=== PATIENT | female | born 1970 | race Caucasian/White ===

== ENCOUNTER 2019-06-04 09:48 | Outpatient (CLI) | payer BC, SELFPAY ==
--- NOTE | ~2019-06-04 | MM_ITS ---
EXAMINATION: MM screening [facility] BI w john HISTORY: Screening mammogram TECHNIQUE: Craniocaudal and mediolateral oblique 3-D tomosynthesis images were obtained and synthetic 2-D images were generated. CAD analysis was submitted and interpreted. COMPARISON: 05/10/2018, 01/20/2017, 12/30/2015 bilateral digital screening mammogram examinations BREAST PARENCHYMAL COMPOSITION: There are scattered areas of fibroglandular density. FINDINGS: There is no evidence of suspicious mass, calcification, or architectural distortion to sugg est malignancy in either breast. There has been no suspicious interval change. IMPRESSION: 1. No mammographic evidence of malignancy. 2. Recommend routine screening mammography in one year. BI-RADS Category 1: Negative Reviewed, dictated and finalized at location A. TH ASSOCIATE
== END 2019-06-04 09:49 | disposition home or self-care (01) ==
PROVIDERS: Visit Provider Nurse Practitioner
DX: Z12.31 Encounter for screening mammogram for malignant neoplasm of breast (principal)
CPT/HCPCS: 77063; 77067

== ENCOUNTER 2020-02-11 06:55 | Outpatient (NON) | payer BC, SELFPAY ==
[2020-02-12 00:38] LABS: SARS-CoV-2 RNA PCR Negative
== END 2020-02-11 06:56 ==
PROVIDERS: PCP Family Medicine; Visit Provider Physician Assistant
DX: Z20.828 Contact with and (suspected) exposure to other viral communicable diseases (principal); R68.89 Other general symptoms and signs
CPT/HCPCS: 87635; C9803; U0003

== ENCOUNTER 2020-03-09 11:06 | Outpatient (CLI) | payer BC, SELFPAY ==
--- NOTE | ~2020-03-09 | US_ITS ---
EXAMINATION: US thyroid DATE: 03/09/2020 11:36 INDICATION: Goiter. TECHNIQUE: Multiple ultrasound images of the thyroid were obtained. COMPARISON: Ultrasound 11/22/2017 FINDINGS: The right thyroid lobe measures 3.1 x 1.3 x 1.4 cm. The left thyroid lobe measures 3.8 x 1.2 x 1.4 c m. There is normal echotexture and echogenicity throughout the thyroid gland. No discrete nodules id entified. Normal vascular flow is present. IMPRESSION: 1. Normal thyroid. Reviewed, dictated and finalized at location A. R SYSTEMS DESIGNER IMPRESSION: 1. Normal thyroid.
== END 2020-03-09 11:07 | disposition home or self-care (01) ==
PROVIDERS: PCP Family Medicine; Visit Provider Family Medicine
DX: E01.0 Iodine-deficiency related diffuse (endemic) goiter (principal)
CPT/HCPCS: 76536

== ENCOUNTER 2020-06-08 14:41 | Outpatient (CLI) | payer BC, SELFPAY ==
--- NOTE | ~2020-06-08 | MM_ITS ---
EXAMINATION: MM screening [facility] BI w john HISTORY: Screening mammogram TECHNIQUE: Craniocaudal and mediolateral oblique 3-D tomosynthesis images were obtained and synthetic 2-D images were generated. CAD analysis was submitted and interpreted. COMPARISON: 05/27/2019, 05/27/2018, 01/20/2017 BREAST PARENCHYMAL COMPOSITION: There are scattered areas of fibroglandular density. FINDINGS: There is no evidence of suspicious mass, calcification, or architectural distortion to sugg est malignancy in either breast. There has been no suspicious interval change. IMPRESSION: 1. No mammographic evidence of malignancy. 2. Recommend routine screening mammography in one year. BI-RADS Category 1: Negative Reviewed, dictated and finalized at location A. ATING ENGINEER APPRENTICE
== END 2020-06-08 14:42 | disposition home or self-care (01) ==
LOC: ANHIMG 14:43
PROVIDERS: PCP Family Medicine; Visit Provider Nurse Practitioner
DX: Z12.31 Encounter for screening mammogram for malignant neoplasm of breast (principal)
CPT/HCPCS: 77063; 77067

== ENCOUNTER 2021-07-24 07:34 | Outpatient (CLI) | payer BC, SELFPAY ==
--- NOTE | ~2021-07-24 | MM_ITS ---
EXAMINATION: MM screening [facility] BI w john HISTORY: Screening mammogram TECHNIQUE: Craniocaudal and mediolateral oblique 3-D tomosynthesis images were obtained and synthetic 2-D images were generated. CAD analysis was submitted and interpreted. COMPARISON: June 08, 2020, June 04, 2019, May 10, 2018 bilateral screening mammogram examina tions BREAST PARENCHYMAL COMPOSITION: There are scattered areas of fibroglandular density. FINDINGS: There is no evidence of suspicious mass, calcification, or architectural distortion to sugg est malignancy in either breast. There has been no suspicious interval change. IMPRESSION: 1. No mammographic evidence of malignancy. 2. Recommend routine screening mammography in one year. BI-RADS Category 1: Negative Reviewed, dictated and finalized at location A.
== END 2021-07-24 07:35 | disposition home or self-care (01) ==
LOC: ANHIMG 07:35
PROVIDERS: PCP Family Medicine; Visit Provider Obstetrics & Gynecology Gynecology
DX: Z12.31 Encounter for screening mammogram for malignant neoplasm of breast (principal)
CPT/HCPCS: 77063; 77067

== ENCOUNTER → 2021-12-14 13:46 | Outpatient (CLI) | payer BC, SELFPAY ==
--- NOTE | ~2021-12-14 | US_ITS ---
US thyroid INDICATION: Thyroid goiter TECHNIQUE: Real-time sonographic images of the thyroid gland were obtained. COMPARISON: Comparison to 03/09/2020 FINDINGS: The right thyroid lobe measures 3.7 x 1.1 x 1.5 cm. The left thyroid lobe measures 4.1 x 1 x 1.1 cm. There is a benign 2 mm cyst of the right thyroid lobe. There is normal echotexture and ech ogenicity throughout the thyroid gland. No discrete nodules identified. Normal vascular flow is pres ent. IMPRESSION: 1. Unremarkable thyroid ultrasound. Reviewed, dictated and finalized at location A.
== END ==
PROVIDERS: PCP Family Medicine; Visit Provider Physician Assistant
DX: E01.0 Iodine-deficiency related diffuse (endemic) goiter (principal)
CPT/HCPCS: 76536

== ENCOUNTER 2022-04-20 16:07 | Outpatient (CLI) | payer BC, SELFPAY ==
[2022-04-20 17:20] LABS: Hematocrit 37.8 % (37.0-47.0); Hemoglobin 12.5 g/dL (12.0-15.0); Mean Corpuscular HGB Conc 33.1 g/dl (32-36); Mean Corpuscular Hemoglobin 29.8 pg (26-34); Mean Corpuscular Volume 90.2 fl (80-100); Mean Platelet Volume 9.7 fl (7.4-10.4); Platelet Count Result 283 k/mm3 (150-375); Red Blood Count 4.19 M/mm3 (4.2-5.4); Red Cell Distribution Width 12.9 % (11.5-14.5); White Blood Count 7.7 K/mm3 (4.5-10.0)
[2022-04-20 17:51] LABS: Free T4 Free Thyroxine 0.79 ng/mL (0.78-2.19)
[2022-04-20 17:53] LABS: Beta HCG Quantitative < 2.39 mIU/ML
== END 2022-04-20 16:08 | disposition home or self-care (01) ==
LOC: ANHLAB 16:10
PROVIDERS: PCP Family Medicine; Visit Provider Obstetrics & Gynecology Gynecology
DX: N92.1 Excessive and frequent menstruation with irregular cycle (principal)
CPT/HCPCS: 36415; 84439; 84443; 84702; 85027

== ENCOUNTER → 2022-04-22 12:50 | Outpatient (CLI) | payer BC, SELFPAY ==
--- NOTE | ~2022-04-22 | US_ITS ---
EXAMINATION: US pelvic complete w TV DATE: 04/22/2022 13:21 INDICATION: Menorrhagia. TECHNIQUE: Multiple transabdominal and transvaginal sonographic images of the pelvis were obtained. COMPARISON: None. FINDINGS: TRANSABDOMINAL ULTRASOUND: The uterus measures 9.5 x 5.6 x 6.3 cm. There is no free fluid in the pelvis. TRANSVAGINAL ULTRASOUND: The endometrial complex measures 23 mm in thickness. There are nabothian cysts in the cervix. The rig ht ovary measures 2.2 x 1.2 x 1.5 cm. The left ovary measures 3.5 x 2.3 x 2.3 cm. There is a 3.1 cm c yst in left ovary with low level echoes, consistent with a hemorrhagic cyst. There is normal vascular flow in the ovaries. IMPRESSION: 1. Thickened endometrial complex, which may be seen with endometrial hyperplasia or polyp. 2. 3.1 cm hemorrhagic cyst in left ovary. Reviewed, dictated and finalized at location A. LE FUSION MIDDLEWARE DEVELOPER IMPRESSION: 1. Thickened endometrial complex, which may be seen with endometrial hyperplasi a or polyp. 2. 3.1 cm hemorrhagic cyst in left ovary.
== END ==
PROVIDERS: PCP Nurse Practitioner; Visit Provider Nurse Practitioner
DX: N92.1 Excessive and frequent menstruation with irregular cycle (principal); N83.202 Unspecified ovarian cyst, left side
CPT/HCPCS: 76830; 76856

== ENCOUNTER 2022-04-25 13:39 | Outpatient (CLI) | payer BC, SELFPAY ==
[2022-04-25 14:32] LABS: Hematocrit 35.9 % (37.0-47.0); Hemoglobin 11.6 g/dL (12.0-15.0); Mean Corpuscular HGB Conc 32.3 g/dl (32-36); Mean Corpuscular Hemoglobin 29.1 pg (26-34); Mean Corpuscular Volume 90.2 fl (80-100); Mean Platelet Volume 9.3 fl (7.4-10.4); Platelet Count Result 298 k/mm3 (150-375); Red Blood Count 3.98 M/mm3 (4.2-5.4); Red Cell Distribution Width 13.1 % (11.5-14.5); White Blood Count 7.4 K/mm3 (4.5-10.0)
== END 2022-04-25 13:40 | disposition home or self-care (01) ==
PROVIDERS: PCP Nurse Practitioner; Visit Provider Obstetrics & Gynecology Gynecology
DX: N92.0 Excessive and frequent menstruation with regular cycle (principal)
CPT/HCPCS: 36415; 85027

== ENCOUNTER 2022-12-22 13:00 | Outpatient (RCR) | payer BC, SELFPAY ==
--- NOTE | 2022-12-16 09:43 | OPREHPOC ---
Outpatient Therapy Plan of Care This is a Multidisciplinary Plan of Care that may contain components documented by all disciplines (PT, OT, and ST.) PT Problem 1 PT Problem #1 Knowledge Deficit PT Goal 1 Goal 1. Patient will perform independent HEP Target Visit 6 PT Problem 2 PT Problem #2 Impaired Strength PT Goal 1 Goal 1. Improve pelvic floor strength to 4/5 to decrease incontinence Target Visit 6 PT Goal 2 Goal 2. Improve pelvic floor endurance to 10 seconds to decrease incontinence Target Visit 6 PT Problem 3 PT Problem #3 Impaired Functional ADLs PT Goal 1 Goal 1. Decrease pad use to 1 a day or less Target Visit 6 PT Goal 2 Goal 2. Pt will report no more than 1 instance of incontinence a week Target Visit 6
--- NOTE | 2022-12-16 09:43 | PTOPEVAL1 ---
Assessment and note entered by Marissa Wilks DPT Evaluation Information Assessment Status Evaluation Subjective Information Pt reports urinary incontinence for at least 8 years and is worsening. Occurs with sneezing, coughing, and often now just randomly. Occurs daily, 4 times a day but can be hard to tell. Wears 2 smaller liners a day. Denies pain with urination. Urinates 5 times a day and 1 time at night. Can hold urine 10-15 minutes. BM 1-3 times a day, denies pain. No fecal incontinence. History of mild pain with pap smear, intercourse, tampon use. Pt has been 2 times, 1 vaginal and 1 . No other complications. Pt has been told she is perimenopausal. No other COATING OPERATOR or b /b history. Diagnosed with fibromyalgia. Patient goal: decrease incontinence or at least prevent it from worsening Reported Pain Level Pain Score 0: Self Report Assessment PT Clinical Summary The patient is presenting to skilled therapy with a long history of worsening urinary incontinence. She presents with decreased pelvic floor muscle strength and endurance which are contributing to her daily incontinence. She will highly benefit from therapy to address these impairments and reduce incontinence. Plan of Care Interventions Manual Therapy,Neuro Re-education,Patient/ Caregiver Education,Therapeutic Activities, Therapeutic Exercise PT Services Indicated Yes Treatment Frequency and 1 time a week for 5 weeks Duration These treatments will address the objective and functional deficits as defined above. The patient will be advanced safely and appropriately in order for the patient to progress towards his/her prior level of function. Additional exercises will be introduced and as well as a comprehensive home exercise program upon discharge, if needed, ?to ensure carryover of functional gains achieved in the clinic. This treatment plan has been reviewed and agreement upon by the patient.
--- NOTE | 2022-12-28 12:43 | PTOPDC ---
Assessment and note entered by Marissa Wilks, DPT Evaluation Information Assessment Status Discharge - Pt Not Present Subjective Information Assessment PT Clinical Summary Patient is self discharging at this time- her hips and shoulders are bothering her too much and wants to try HEP independently. She has been educated to follow up with PT as needed and will need a new script to resume therapy in the future. Plan of Care PT Services Indicated No
== END 2022-12-29 13:09 | disposition home or self-care (01) ==
LOC: ANHPT 13:00
PROVIDERS: PCP Family Medicine; Visit Provider Family Medicine
DX: R32 Unspecified urinary incontinence (principal)
CPT/HCPCS: 97112; 97161; 97530

== ENCOUNTER 2023-01-19 16:32 | Outpatient (CLI) | payer BC, SELFPAY ==
--- NOTE | ~2023-01-19 | MM_ITS ---
EXAMINATION: MM screening [facility] BI w john HISTORY: Screening mammogram TECHNIQUE: Craniocaudal and mediolateral oblique 3-D tomosynthesis images were obtained and synthetic 2-D images were generated. CAD analysis was submitted and interpreted. COMPARISON: 07/24/2021, 06/08/2020, 06/04/2019 bilateral screening mammogram examinations BREAST PARENCHYMAL COMPOSITION: There are scattered areas of fibroglandular density. FINDINGS: Stable mild fibroglandular asymmetry since 06/04/2019. There is no evidence of suspicious ma ss, calcification, or architectural distortion to suggest malignancy in either breast. There has been no suspicious interval change. IMPRESSION: 1. No mammographic evidence of malignancy. 2. Recommend routine screening mammography in one year. BI-RADS Category 1: Negative Reviewed, dictated and finalized at location A.
== END 2023-01-19 16:33 | disposition home or self-care (01) ==
PROVIDERS: PCP Family Medicine; Visit Provider Nurse Practitioner
DX: Z12.31 Encounter for screening mammogram for malignant neoplasm of breast (principal)
CPT/HCPCS: 77063; 77067

== ENCOUNTER 2023-06-12 00:42 | Day surgery (SDC) | payer BC, SELFPAY ==
[2023-05-16 10:48] VITALS: BMI 34.8
--- NOTE | 2023-06-09 09:07 | SUR.PREOP ---
Patient called regarding upcoming procedure. Reviewed preop instructions, appointment times, and procedure prep.
[2023-06-12 07:49] VITALS: BP 144/59; PULSE 114; RESP 18; TEMP 35.8; O2SAT 98; BMI 34.6
[2023-06-12] MEDS: LACTATED RINGERS 1,000 ML 150 ML IV CONT (07:57)
--- NOTE | 2023-06-12 08:07 | PM.HPGS ---
History of Present Illness History of Present Illness Consent: Risks, benefits, and alternatives have been discussed and questions answered. Patient agrees to proceed with procedure. Chief complaint: neoplasm screening Narrative: Nacny Fischer is a 52 year old female here for first screening colonoscopy Review of Systems Constitutional: Constitutional: Denies headache(s) and Denies weakness Eyes: Eyes: Denies blurry vision ENT: Reports Normal hearing present, Denies headache(s) and Denies neck pain Cardiovascular: Cardiovascular: Denies chest pain and Denies dyspnea Respiratory: Respiratory: Denies dyspnea Gastrointestinal: Gastrointestinal: Reports no additional gastrointestinal complaints Genitourinary: Genitourinary: Denies dysuria Musculoskeletal: Musculoskeletal: Denies neck pain Integumentary/Breasts: Skin/Breast: Denies dry skin Neurologic: Reports Normal hearing present, Denies headache(s) and Denies weakness Psychiatric: Psychiatric: Denies anxiety Endocrine: Endocrine: Denies change in body appearance Hematologic/Lymphatic: Hematologic/Lymphatic: Denies easy bleeding Allergic/Immunologic: Allergic/Immunologic: Denies urticaria PMFSH Past Medical History Medical History (Updated 06/12/23 @ 08:08 by Román Edwards MD) Anxiety Arthritis Asthma Claustrophobia Colon cancer screening Coughing Depression Diarrhea Essential hypertension Excessive hunger Excessive thirst Fibromyalgia Hair loss Hoarseness HTN (hypertension) Insomnia Lightheadedness Migraine, unspecified, not intractable, without status migrainosus Mild episode of recurrent major depressive disorder Mild intermittent asthma without complication Nausea & vomiting Obesity (BMI 30.0-34.9) BUFFY (obstructive sleep apnea) Psoriasis Psoriatic arthritis Seasonal allergies Sleep apnea Thyroid nodule Wears glasses Surgical History Surgical History History of bilateral tubal ligation History of mandibular surgery History of tonsillectomy Family History Family History Other Arthritis Cerebrovascular accident Diabetes mellitus Family history of chronic obstructive pulmonary disease Family history of gout Family history of lung cancer Family history of migraine headaches Family history of thyroid disease HLD (hyperlipidemia) Heart disease Hypertension Social History Social History (Updated 07/11/22 @ 15:56 by Shereen Dela Cruz CMA) Smoking status: Never smoker Second hand tobacco smoke exposure: No Alcohol intake: never Substance use: never Substance use type: does not use Lack of Transportation: No Lack of Food: Never True Current Housing: I Have Housing Concerned About Future Housing: No Difficulty Paying Gas/Electric Bills: No Difficulty Paying for Meds: No Currently Unemployed: No Difficulty w/ Childcare or Family Care: No Living arrangements: with family Occupation/Education: unemployed Additional occupation/education comments: Homemaker Gender identity (if verbalized by the patient): Female Spiritual care concerns: No Agree to blood products: Yes Meds Home Medications and Allergies Home Medications Medication Instructions Recorded Confirmed Type buspirone 15 mg tablet 15 mg PO BID PRN anxiety #60 tabs 11/13/20 06/12/23 Rx omeprazole 40 mg capsule,delayed 40 mg PO DAILY #90 caps 11/13/20 06/12/23 Rx release duloxetine 30 mg capsule,delayed 90 mg PO DAILY #270 caps 01/15/23 06/12/23 Rx release metoprolol succinate 25 mg See Rx Instructions .Route 01/15/23 06/12/23 Rx tablet,extended release 24 hr .COMPLEX #90 tabs gabapentin 300 mg capsule 600 mg PO HS 05/16/23 06/12/23 History progesterone micronized 100 mg 100 mg PO DAILY 05/16/23 06/12/23 History capsule ropinirole 0.25 mg tablet 0.5 mg PO QHS 05/16/23 06/12/23
--- NOTE | 2023-06-12 08:09 | WPDANESEPPF ---
Anes - Initial Pre Proc Eval Procedure: Operation Date: 06/12/23 09:00 Proposed Procedures p Screening Colonoscopy - Román Edwards MD Date/Time: 06/12/23 08:09 Surgeon: Román Edwards MD Pre Op Diagnosis: neoplasm screening Patient Data Age: 52 Gender: F Height: 1.65 m Weight: 94.4 kg Last Vital Signs Temp 96.4 F L 06/12/23 07:49 Pulse 114 H 06/12/23 07:49 Resp 18 06/12/23 07:49 BP 144/59 H 06/12/23 07:49 Pulse Ox 98 06/12/23 07:49 O2 Del Method Room Air 06/12/23 07:49 Allergies Allergy/AdvReac Type Severity Reaction Status Date / Time iodine Allergy Unknown Unknown Verified 06/12/23 07:48 Dust Allergy Mild Unknown Uncoded 06/12/23 07:48 Mold (Blue) Cheese Allergy Mild MUSCUS Uncoded 06/12/23 07:48 BEE POLLENS Allergy Unknown Unknown Uncoded 06/12/23 07:48 Home Medications Medication Instructions Recorded Confirmed Type buspirone 15 mg tablet 15 mg PO BID PRN anxiety #60 tabs 11/13/20 06/12/23 Rx omeprazole 40 mg capsule,delayed 40 mg PO DAILY #90 caps 11/13/20 06/12/23 Rx release duloxetine 30 mg capsule,delayed 90 mg PO DAILY #270 caps 01/15/23 06/12/23 Rx release metoprolol succinate 25 mg See Rx Instructions .Route 01/15/23 06/12/23 Rx tablet,extended release 24 hr .COMPLEX #90 tabs gabapentin 300 mg capsule 600 mg PO HS 05/16/23 06/12/23 History progesterone micronized 100 mg 100 mg PO DAILY 05/16/23 06/12/23 History capsule ropinirole 0.25 mg tablet 0.5 mg PO QHS 05/16/23 06/12/23 History Patient hx anesthesia problems: none Family hx anesthesia problems: none Results Review: All pre-operative results and documents have been reviewed as part of the pre-operative evaluation. [facility] Past Medical History Medical History (Updated 06/12/23 @ 08:08 by Román Edwards MD) Anxiety Arthritis Asthma Claustrophobia Colon cancer screening Coughing Depression Diarrhea Essential hypertension Excessive hunger Excessive thirst Fibromyalgia Hair loss Hoarseness HTN (hypertension) Insomnia Lightheadedness Migraine, unspecified, not intractable, without status migrainosus Mild episode of recurrent major depressive disorder Mild intermittent asthma without complication Nausea & vomiting Obesity (BMI 30.0-34.9) BUFFY (obstructive sleep apnea) Psoriasis Psoriatic arthritis Seasonal allergies Sleep apnea Thyroid nodule Wears glasses Surgical History Surgical History History of bilateral tubal ligation History of mandibular surgery History of tonsillectomy Family History Family History Other Arthritis Cerebrovascular accident Diabetes mellitus Family history of chronic obstructive pulmonary disease Family history of gout Family history of lung cancer Family history of migraine headaches Family history of thyroid disease HLD (hyperlipidemia) Heart disease Hypertension Social History Social History (Updated 07/11/22 @ 15:56 by Shereen Dela Cruz [facility]) Smoking status: Never smoker Second hand tobacco smoke exposure: No Alcohol intake: never Substance use: never Substance use type: does not use Lack of Transportation: No Lack of Food: Never True Current Housing: I Have Housing Concerned About Future Housing: No Difficulty Paying Gas/Electric Bills: No Difficulty Paying for Meds: No Currently Unemployed: No Difficulty w/ Childcare or Family Care: No Living arrangements: with family Occupation/Education: unemployed Additional occupation/education comments: Homemaker Gender identity (if verbalized by the patient): Female Spiritual care concerns: No Agree to blood products: Yes Anes - Eval Final PreProcedure Day of Procedure 06/12/23 08:09 Patient weight: obese Heart: regular rate and rhythm Lungs: clear to auscultation Airway: Mallampati scale
[2023-06-12 08:24] VITALS: BP 88/65; PULSE 103; RESP 25; O2SAT 99
[2023-06-12 08:34] VITALS: BP 126/76; PULSE 102; RESP 17; O2SAT 100
[2023-06-12 08:44] VITALS: BP 130/77; PULSE 100; RESP 16; O2SAT 100
== END 2023-06-12 08:57 | disposition home or self-care (01) ==
PROVIDERS: PCP Family Medicine; Referring Provider Nurse Practitioner; Visit Provider Internal Medicine Gastroenterology
PROC: 0DJD8ZZ Inspection of Lower Intestinal Tract, Via Natural or Artificial Opening Endoscopic (ICD-10-PCS; CPT 45378; principal; 2023-06-12 09:00)
DX: Z12.11 Encounter for screening for malignant neoplasm of colon (principal); I10 Essential (primary) hypertension; F41.9 Anxiety disorder, unspecified; J45.909 Unspecified asthma, uncomplicated; F32.A Depression, unspecified; F40.240 Claustrophobia; G47.00 Insomnia, unspecified; G47.33 Obstructive sleep apnea (adult) (pediatric); E66.9 Obesity, unspecified; Z68.34 Body mass index [BMI] 34.0-34.9, adult; Z82.49 Family history of ischemic heart disease and other diseases of the circulatory system; Z80.1 Family history of malignant neoplasm of trachea, bronchus and lung
CPT/HCPCS: 45378; J2704; J7120

== ENCOUNTER 2024-08-26 13:07 | Outpatient (CLI) | payer OTHER, BC, SELFPAY ==
--- NOTE | ~2024-08-26 | US_ITS ---
Pelvic ultrasound. Clinical History: Postmenopausal bleeding Technique: Realtime transabdominal and transvaginal scanning of the pelvis was performed. Color flow Doppler and Doppler spectral analysis were performed. Findings: The uterus is anteverted, and measures 7.2 x 3.8 x 5.5 cm. The endometrial stripe has a th ickness of 5 mm. No focal mass is identified. Neither ovary seen. No adnexal mass seen. There is no evidence of free fluid in the cul de sac. Impression: No abnormal endometrial thickening. Neither ovary seen. Reviewed, dictated and finalized at location . Impression: No abnormal endometrial thickening. Neither ovary seen.
== END 2024-08-26 13:08 | disposition home or self-care (01) ==
PROVIDERS: PCP Family Medicine; Visit Provider Obstetrics & Gynecology Gynecology
DX: N95.0 Postmenopausal bleeding (principal)
CPT/HCPCS: 76830; 76856

== ENCOUNTER 2025-04-08 16:15 | Outpatient (CLI) | payer BC, SELFPAY ==
--- NOTE | ~2025-04-08 | MM_ITS ---
EXAMINATION: MM screening chris BI [place] HISTORY: Screening. TECHNIQUE: Craniocaudal and mediolateral oblique 3-D tomosynthesis images were obtained and synthetic 2-D images were generated. CAD analysis was submitted and interpreted. COMPARISON: 2022, 2021, and 2020. BREAST PARENCHYMAL COMPOSITION: Not Dense: There are scattered areas of fibroglandular FINDINGS: No suspicious masses are seen. There are no suspicious calcifications. No unexplained architectural distortion is seen. There are no skin or nipple abnormalities identified. There is no adenopathy seen on the images submitted. IMPRESSION: No mammographic evidence to suggest malignancy is seen. The patient may return to screening mammography as per ACR guidelines. BI-RADS 1 - Negative. Reviewed, dictated and finalized at location B. T SUPERVISOR
--- OUTSIDE RECORDS SUMMARY | 2025-04-08 16:58 | XMS_ITS | Clinical Summary ---
Author Organization [facility] Address [address] [place] [address] Care Team Providers Care Mechanical Manager Name Role Phone Rosa Maher MD Primary Care Provider [phone] Allergies No known active allergies Medications norethindrone ac-eth estradiol (GILDESS 1.5, 21,) 1.5-30 mg-mcg tablet take 1 tablet by oral route every day [address] (CYMBALTA) 60 mg capsule take 1 capsule by oral route every day 0 0 7 Active ergocalciferol (VITAMIN D2) 50,000 unit capsule take 1 capsule by oral route every week 0 0 7 Active mometasone-form oterol (DULERA) 100-5 mcg/actuation inhaler inhale 1 puff by inhalation route every day in the morning and evening BID 0 Inhaler 0 7 Active traMADol (ULTRAM) 50 mg tablet take 1 tablet by oral route every 8 hours as needed 0 0 7 Active mv,Ca,min-iron- [id number] 18 mg iron- 400 mcg-180 mg tablet Take by mouth. Activ e Active Problems Problem Noted Date Diagnosed Date Thyroid nodule 01/19/2017 Assessment & Plan (01/19/2017 3:43 PM CDT): None identified on ultrasound today F/u prn Medical History Medical History Date Comments Migraine headache Headache, migr benja Hx Other Medical tension headach e; Comments: [facility] 07/14/2016 - Hx Other Medical tubaligation; C omments: [facility] 07/14/2016 - Hx Other Medical ; Comm ents: [facility] 07/14/2016 - Hx Other Medical corrective jaw; Comments: [facility] 07/14/2016 - Hx Other Medical fribromyalgia Social History Tobacco Use Types Packs/Day Years Used Date Smoking Tobacco: Never Alcohol Use Standard Drinks/Week Comments No 0 (1 standard drink = 0.6 oz pur e alcohol) Personal Safety Answer Date Recorded Getting School Help Needed Not on file 07/22 Comments Unknown Sex and Gender Information Value Date Recorded Sex Assigned at Not on file Legal Sex Female 7:53 PM LOW VOLTAGE ELECTRICIAN Gender Identity Not on file Sexual Orientation Not on file Last Filed Vital Signs Vital Sign Reading Time Taken Comments Blood Pressure 132/88 01/19/2017 10:47 AM CDT Pulse 108 01/19/2017 10:47 AM CDT Temperature - - Respiratory Rate 12 01/19/2017 10:47 AM CDT Oxygen Saturation - - Inhaled Oxygen Concentration - - Weight 78.9 kg (174 lb) 01/19/2017 10:47 AM CDT Height 167.6 cm (5' 6) 01/19/2017 10:47 AM CDT Body Mass Index 28.08 01/19/2017 10:47 AM CDT Plan of Treatment Not on file Insurance [facility] Money Dashboard CHOICE Care Teams Mechanical Manager Relationship Specialty Start Date End Date Rosa Maher MD PCP - General 08/05/16
--- OUTSIDE RECORDS SUMMARY | 2025-04-08 16:58 | XMS_ITS | Clinical Summary ---
Author Organization [facility] Address [address] [place] [address] Care Team Providers Care Muck Hauler Name Role Phone Rosa Maher MD Primary Care Provider [phone] Social History Tobacco Use Types Packs/Day Years Used Date Smoking Tobacco: Never Assessed Comments Unknown Sex and Gender Information Value Date Recorded Sex Assigned at Not on file Legal Sex Female 5:18 PM PRIMARY CARE NURSE PRACTITIONER Gender Identity Not on file Sexual Orientation Not on file Plan of Treatment Health Maintenance Due Date Last Done Comments DTAP/TDAP/TD VACCINES (1 - Tdap) 08/11/1991 HEPATITIS B VACCINES (1 of 3 - 19+ 3-dose series) 08/11/1991 HPV/Cotest (21-29) 1993 HPV/Cotest (30-65) 2002 COLORECTAL SCREENING 2017 Colorectal Cancer Screening 2017 FIT-DNA Q 3 years 2017 FIT/FOBT Q 1 year 2017 Flex Sig/CT Colonography Q 5 years 2017 BREAST CANCER SCREENING 06/04/2020 06/04/19 20, 06/04/2019, 05/10/2018, Additional history exists CERVICAL CANCER SCREENING 06/13/2022 PAP SMEAR 06/13/2022 06/13/2019, 02/0 09/2018, 05/03/2017, Additional history exists ZOSTER VACCINE (1 of 2) 2022 INFLUENZA VACCINE (#1) 2024 Care Teams Muck Hauler Relationship Specialty Start Date End Date Rosa Maher MD [address] [place] [id number] PCP - General Family Practice 06/05/18
--- OUTSIDE RECORDS SUMMARY | 2025-04-08 16:58 | XMS_ITS | Clinical Summary ---
Author Organization [facility] Address [address] [place] [id number] Care Team Providers Care Hvac Controls Technician Name Role Phone Unavailable Primary Care Provider Unavailabl e Social History Tobacco Use Types Packs/Day Years Used Date Smoking Tobacco: Never Assessed Comments Unknown Sex and Gender Information Value Date Recorded Sex Assigned at Not on file Legal Sex Female 6:28 PM CDT Gender Identity Not on file Sexual Orientation Not on file Plan of Treatment Health Maintenance Due Date Last Done Comments Cervical Cancer Screening Pa p Smear (Age 30 to 64) Every 3 Years 1972 Colorectal Cancer Screening Colonoscopy (10 Years) 1972 Annual Physical 08/11/1975 Hepatitis C 1990 DTaP, Tdap and Td Vaccines ( 1 - Tdap) 08/11/1991 Hepatitis B Vaccines (1 of 3 - 19+ 3-dose series) 08/11/1991 Cervical Cancer Screening Pa p with HPV Testing (Age 30 to 64) Every 5 Years 2002 Cervical Cancer Screening with HPV 2002 Mammogram Screening 2012 Pneumococcal Vaccine: 50+ Ye ars (1 of 1 - PCV) 2022 Zoster Vaccines (1 of 2) 2022 COVID-19 Vaccine ( - 2024-2 6 season) 2025 Influenza Adult (#1) 2025 Hepatitis A Vaccines Aged Out No long er eligible based on patient's age to complete this topic Meningococcal B Vaccine Aged Out No l onger eligible based on patient's age to complete this topic Meningococcal Vaccine Aged Out No rosalio shyann eligible based on patient's age to complete this topic RSV Immunizations Under 20 Months Aged Out No longer eligible based on patient's age to complete this topic
--- OUTSIDE RECORDS SUMMARY | 2025-04-08 16:58 | XMS_ITS | Clinical Summary ---
Author Organization [facility] [employer] Address [address] [place] [address] Care Team Providers Care Supervisor Wet Pour Name Role Phone Rosa Maher MD Primary Care Provider [phone] Source Comments [facility],non-owned Affiliates and Associated Physician Practices is amultiple site organization consisting of ambulatory clinics and hospital sitesin [place], [place], [place] and [place]. This disclosure is being madepursuant to the Care Everywhere program and may not contain all information available regarding this patient. Last updated 18.[facility] [employer] Allergies No known active allergies Medications * Be aware that medications may not be up to date on this document. Alwaysverify current medications with the patient. Norethindrone Acet-Ethinyl Est (GILDESS .10/04 PO)Indications: Screening for unspecified condition Take by mouth. Activ e Calcium-Magnesi um-Vitamin D (CALCIUM MAGNESIUM PO)Indications: Screening for unspecified condition Take by mouth. Activ e traMADol (ULTRAM) 50 MG tabletIndicatio ns:Screening for unspecified condition Take 50 mg by mouth 2 times daily. Active gabapentin (NEURONTIN) 300 MG capsuleIndicati ons:Screening for unspecified condition Take 300 mg by mouth 2 times daily. Active triamcinolone 0.1 % cream - AQUAPHOR Ointment 50:50 with LCD 5 % CREAIndications :Screening for unspecified condition Apply to affected area 2 times daily as needed. Active folic acid (FOLVITE) 1 MG tablet Take 5 Tabs by mouth every 7 days. 3 days after methotrexate 20 Tab 5 4 Active methotrexate 2.5 MG tablet Take 5 Tabs by mouth every 7 days. 20 Tab 3 4 Active Active Problems Problem Noted Date Diagnosed Date Psoriatic arthritis 02/27/2014 Overview (02/27/2014): Dx made by Dr. Epperson on 02/2014 based on arthralgias; scaly elbows; ridged nails; asymmetric tenderness. Migraine 02/27/2014 Social History Tobacco Use Types Packs/Day Years Used Date Smoking Tobacco: Never Smokeless Tobacco: Never Alcohol Use Standard Drinks/Week Comments Not Asked 0 (1 standard drink = 0.6 oz pur e alcohol) Comments Unknown Sex and Gender Information Value Date Recorded Sex Assigned at Not on file Legal Sex Female 9:52 AM PRODUCTION MANAGER Gender Identity Not on file Sexual Orientation Not on file Last Filed Vital Signs Vital Sign Reading Time Taken Comments Blood Pressure 127/78 04/28/2014 10:08 AM PRODUCTION MANAGER Pulse 88 04/28/2014 10:08 AM PRODUCTION MANAGER Temperature 37.1 C (98.8 F) 04/28/2014 10:08 AM PRODUCTION MANAGER Respiratory Rate - - Oxygen Saturation - - Inhaled Oxygen Concentration - - Weight 65.8 kg (145 lb) 04/28/2014 10:08 AM PRODUCTION MANAGER Height 167.6 cm (5' 6) 04/28/2014 10:08 AM PRODUCTION MANAGER Body Mass Index 23.4 04/28/2014 10:08 AM PRODUCTION MANAGER Plan of Treatment Health Maintenance Due Date Last Done Comments COLOGUARD (AGES 45-75) - COL ON CA SCREENING 1972 COLON MONITORING 1972 COLONOSCOPY - COLON CA SCREENING 1972 CT COLONOGRAPHY - COLON CA SCREENING 1972 Colorectal Cancer Screening 1972 FIT - COLON CA SCREENING 1972 FLEX SIG - COLON CA SCREENING 1972 LIPID TESTING 1972 MAMMOGRAM 1972 HIV SCREENING 08/11/1987 HEPATITIS C SCREENING 08/06/1990 DTAP/TDAP/TD VACCINES (1 - Tdap) 08/11/1991 HEPATITIS B VACCINE (1 of 3 - 19+ 3-dose series) 08/11/1991 PAP SMEAR 1993 Cervical Cancer Screening 2002 PAP with HPV 2002 PNEUMOCOCCAL VACCINE 50+ (1 of 1 - PCV) 2022 ZOSTER VACCINE (1 of 2) 2022 DEPRESSION SCREENING 05/08/2024 COVID-19 VACCINE (1 - 2024-2 6 season) 2025 INFLUENZA VACCINE (#1) 2025 HIB VACCINE Aged Out No longer eligi ble based on patient's age to complete this topic HPV VACCINE Aged Out No longer eligi ble based on patient's age to complete this topic MENINGOCOCCAL (Group B) VACC INE SHARED DECISION-MAKING Aged Out No longer eligibl e based on patient's age to complete this topic MENINGOCOCCAL GROUPS A/C/Y/W VACCINE Aged Out No longer eligible b ased on patient's age to complete this topic Insurance [id number] Care Teams Supervisor Wet Pour Relationship Specialty Start Date End Date Rosa Maher MD [address] [place] [address] PCP - General 07/02/10
== END 2025-04-08 16:16 | disposition home or self-care (01) ==
PROVIDERS: PCP Family Medicine; Visit Provider Nurse Practitioner
DX: Z12.31 Encounter for screening mammogram for malignant neoplasm of breast (principal)
CPT/HCPCS: 77063; 77067